=== PATIENT | male | born 1990 | race Caucasian/White ===

== ENCOUNTER 2020-01-13 06:21 | Emergency (ER) | payer OTHER ==
[~2020-01-13] VITALS: Ht 180.3 cm; Wt 81.7 kg
[2020-01-13] MEDS ORDERED: NORCO 5-325 TA1 EAC2 PO (08:06)
[2020-01-13 08:19] VITALS: BP 112/78
== END 2020-01-13 08:19 | disposition home or self-care (01) ==
LOC: M.ERS 06:21
DX: S23.41XA Sprain of ribs, initial encounter (principal); F17.210 Nicotine dependence, cigarettes, uncomplicated; W18.39XA Other fall on same level, initial encounter; Y93.89 Activity, other specified; Y92.89 Other specified places as the place of occurrence of the external cause; Y99.8 Other external cause status